=== PATIENT | female | born 1995 | race Caucasian/White ===

== ENCOUNTER 2016-08-09 11:28 | Emergency (ER) | payer OTHER ==
[2016-08-09 11:33] VITALS: TEMP 97.5; BMI 26.2
--- NOTE | 2016-08-09 12:50 | PDOC ---
History of Present Illness - General History Source: Patient - History of Present Illness Timing/Duration: reports: getting worse <Jay Qureshi - Last Filed: 08/09/16 16:03> <Sheron Hong - Last Filed: 08/09/16 19:05> - General Chief Complaint: Vaginal Sxs Stated Complaint: 10 WKS , BLEEDING Time Seen by Provider: 08/09/16 12:24 Past History - Past Medical History Asthma: No Cancer: No Cardiac Disorders: No Diabetes: No HTN: No Seizures: No Thyroid Disease: No - Psycho/Social/Smoking Cessation Hx Anxiety: No Suicidal Ideation: No Smoking History: Never smoked Have you smoked in the past 12 months: No Information on smoking cessation initiated: No Hx Alcohol Use: No Drug/Substance Use Hx: No Hx Substance Use Treatment: No <Jay Qureshi - Last Filed: 08/09/16 16:03> <Sheron Hong - Last Filed: 08/09/16 19:05> - Past Medical History Allergies/Adverse Reactions: Allergies Allergy/AdvReac Type Severity Reaction Status Date / Time No Known Allergies Allergy Verified 08/09/16 11:30 Home Medications: Ambulatory Orders Pnv95/Ferrous Fumarate/FA [ Caplet] 1 each PO DAILY 08/09/16 Review of Systems - Review of Systems Constitutional: No: Chills, Fever ABD/GI: No: Nausea, Vomiting, Abdominal cramping : No: Dysuria <HungarianJay greenfield - Last Filed: 08/09/16 16:03> *Physical Exam - Vital Signs Last Vital Signs Temp Pulse Resp BP Pulse Ox 97.5 F L 87 20 138/87 99 08/09/16 11:30 08/09/16 11:30 08/09/16 11:30 08/09/16 11:30 08/09/16 11:30 - Physical Exam General Appearance: Yes: Appropriately Dressed. No: Apparent Distress HEENT: positive: Normal Voice Neck: positive: Supple Respiratory/Chest: negative: Respiratory Distress Female Pelvic Exam: positive: vaginal bleeding, other (os fingertip). negative : CMT, adnexal tenderness Gastrointestinal/Abdominal: positive: Soft. negative: Tender Integumentary: positive: Dry, Warm Neurologic: positive: Fully Oriented, Alert, Normal Mood/Affect <Jay Qureshi - Last Filed: 08/09/16 16:03> - Vital Signs Last Vital Signs Temp Pulse Resp BP Pulse Ox 97.5 F L 78 16 122/75 98 08/09/16 11:30 08/09/16 16:00 08/09/16 16:00 08/09/16 16:00 08/09/16 16:00 <Sheron Hong - Last Filed: 08/09/16 19:05> ED Treatment Course - LABORATORY CBC & Chemistry Diagram: 08/09/16 13:05 - RADIOLOGY Radiology Studies Ordered: Category Date Time Status <14WKS US [US] Stat Ultrasound 08/09/16 12:32 Ordered <Jay Qureshi - Last Filed: 08/09/16 16:03> - LABORATORY CBC & Chemistry Diagram: 08/09/16 13:05 - ADDITIONAL ORDERS Additional order review: Laboratory Results 08/09/16 08/09/16 08/09/16 13:10 13:05 12:32 Beta HCG, Quant 83362.9 Urine Color Yellow Urine Appearance Clear Urine pH 6.0 Ur Specific [place] 1.021 Urine Protein Negative Urine Glucose (UA) Negative Urine Ketones Negative Urine Blood 3+ H Urine Nitrite Negative Urine Bilirubin Negative Urine Urobilinogen Negative Ur Leukocyte Esterase Negative Urine RBC 2 Urine WBC 1 Ur Epithelial Cells Rare Urine Mucus Rare Blood Type O POSITIVE Antibody Screen Negative 08/09/16 13:05 RBC 4.30 D MCV 87.7 MCHC 34.0 RDW 12.4 D MPV 7.6 Neutrophils % 77.7 Lymphocytes % 15.5 D Monocytes % 5.6 D Eosinophils % 0.7 D Basophils % 0.5 D <Sheron Hong - Last Filed: 08/09/16 19:05> Medical Decision Making - Medical Decision Making 08/09/16 12:46 21-year-old female, , about 10 weeks by date, states she had an ultrasound last week that did not show an IUP or evidence of otherwise per patient, scheduled for next ultrasound on Friday, here with vaginal bleeding. Patient states she has been bleeding on and off since last week and states symptoms worsened last night with possible clots. No abdominal pain, dysuria, nausea, vomiting, fever or chills. see exam 1st trimester bleed No IUP on US last week in OB's office Stable in ED w/ mod bleeding in vault, os fingertip ? spon AB, r/o ectopic -T&S -beta -US 08/09/16 15:33 US read as suspected nonviable preg w/ ges sac at ~6 weeks, no yolk sac/ pole seen, no adnexal mass seen. Pt informed and given copy of US report to take to her OB next week. 08/09/16 15:49 <Jay Qureshi - Last Filed: 08/09/16 16:03> *DC/Admit/Observation/Transfer <Jay Qureshi - Last Filed: 08/09/16 16:03> - Attestations Physician Attestion: I reviewed the case with the mid-level practitioner and agree with the mid- level practitioner's assessment, diagnosis and disposition. <Sheron Hong - Last Filed: 08/09/16 19:05> Diagnosis at time of Disposition: Spontaneous - Discharge Dispostion Disposition: HOME Condition at time of disposition: Stable - Patient Instructions Printed Discharge Instructions: DI for Miscarriage Additional Instructions: Please follow up with your OB on Friday. Return for worsening of symptoms Your beta was [id number] today
[2016-08-09 13:36] LABS: BASOPHIL 0.5 % (0-2.0); EOSINOPHIL 0.7 % (0-4.5); MCH 29.8 pg (25.7-33.7); MEAN CELL VOLUME 87.7 fl (80-96); MEAN PLT VOLUME 7.6 fl (7.5-11.1); NEUTROPHILS 77.7 % (42.8-82.8); PLATELET COUNT 248 K/MM3 (134-434); RDW 12.4 % (11.6-15.6); WHITE BLOOD COUNT 10.7 K/mm3 (4.0-10.0)
[2016-08-09 14:04] LABS: URINE APPEARANCE CLEAR; URINE BILIRUBIN NEGATIVE (NEGATIVE); URINE COLOR YELLOW; URINE GLUCOSE (UA) NEGATIVE (NEGATIVE); URINE KETONE NEGATIVE (NEGATIVE); URINE LEUK ESTERASE NEGATIVE (NEGATIVE); URINE NITRITE NEGATIVE (NEGATIVE); URINE PROTEIN NEGATIVE (NEGATIVE); URINE UROBILINOGEN NEGATIVE E.U./dl (0.2-1.0)
[2016-08-09 14:12] LABS: URINE BLOOD 3+ (NEGATIVE)
[2016-08-09 14:17] LABS: URINE MUCUS RARE; URINE RBC 2 /hpf (0-3); URINE WBC 1 /hpf (3-5)
[2016-08-09 16:21] VITALS: BP 122/75; PULSE 78
== END 2016-08-09 16:00 | disposition home or self-care (01) ==
LOC: JER 11:28
DX: O26.891 Other specified pregnancy related conditions, first trimester (principal); Z3A.10 10 weeks gestation of pregnancy; O03.9 Complete or unspecified spontaneous abortion without complication
CPT/HCPCS: 36415; 76801-TC; 81003; 81015; 84702; 85025; 86850; 86900; 86901; 99283-25

== ENCOUNTER 2016-08-11 16:38 | Emergency (ER) | payer OTHER ==
[2016-08-11 16:47] VITALS: BP 120/73; PULSE 99; TEMP 98.5; BMI 26.2
--- NOTE | 2016-08-11 18:43 | PDOC ---
History of Present Illness - General History Source: Patient, Old Records Exam Limitations: No Limitations - History of Present Illness Initial Comments: 08/11/16 19:15 The patient is a 21 year old female (; currently ), with no significant past medical history, who presents to the emergency department with abdominal cramping and vaginal bleeding for the past couple of days. This patient was most recently seen in this ED two days ago for the same symptoms. She had bloodwork and an ultrasound done and was told to return in two days ( today) for repeat tests. Over the past two days, she has been experiencing persistent abdominal cramping and vaginal bleeding. The patient states that she has been going through 5-6 pads/day and has noticed blood clots present. The patient denies fever, chills, headache, nausea, vomiting, diarrhea or dysuria. LMP: 05/26/2016. Allergies: None reported. Past Surgical History: None reported. Social History: Non smoker. Denies alcohol or drug use. PCP: Dr. Olmedo <Kaylie Velasquez - Last Filed: 08/11/16 22:03> <Echo Crooks - Last Filed: 08/12/16 01:47> - General Chief Complaint: Vaginal Bleeding Stated Complaint: VAGINAL BLEEDING Time Seen by Provider: 08/11/16 17:52 Past History <Kaylie Velasquez - Last Filed: 08/11/16 22:03> - Past Medical History Asthma: No Cancer: No Cardiac Disorders: No Diabetes: No HTN: No Seizures: No Thyroid Disease: No - Reproductive History Is Patient Now?: Yes (#): 2 Para: 1 Cervical CA: No Dysfunctional Uterine Bleeding: No Ectopic : No Endometrial CA: No Polycystic Ovaries: No Therapeutic (s) & number: No - Psycho/Social/Smoking Cessation Hx Anxiety: No Suicidal Ideation: No Smoking History: Never smoked Have you smoked in the past 12 months: No Information on smoking cessation initiated: No Hx Alcohol Use: No Drug/Substance Use Hx: No Hx Substance Use Treatment: No <Echo Crooks - Last Filed: 08/12/16 01:47> - Past Medical History Allergies/Adverse Reactions: Allergies Allergy/AdvReac Type Severity Reaction Status Date / Time No Known Allergies Allergy Verified 08/11/16 16:43 Home Medications: Ambulatory Orders Pnv95/Ferrous Fumarate/FA [ Caplet] 1 each PO DAILY 08/09/16 Review of Systems - Review of Systems Able to Perform ROS?: Yes Comments:: 08/11/16 19:16 CONSTITUTIONAL: Absent: fever, no chills, no fatigue EYES: Absent: visual changes ENT: Absent: ear pain, no sore throat CARDIOVASCULAR: Absent: chest pain, no palpitations RESPIRATORY: Absent: cough, no SOB GI: Present: +Abdominal cramping Absent: no nausea, no vomiting, no constipation, no diarrhea GENITOURINARY: Present: +Vaginal bleeding Absent: dysuria, no frequency, no hematuria MUSCULOSKELETAL: Absent: back pain, no arthralgia, no myalgia SKIN: Absent: rash NEURO: Absent: headache <Kaylie Velasquez - Last Filed: 08/11/16 22:03> *Physical Exam - Vital Signs Last Vital Signs Temp Pulse Resp BP Pulse Ox 98.5 F 99 H 17 120/73 99 08/11/16 16:44 08/11/16 16:44 08/11/16 16:44 08/11/16 16:44 08/11/16 16:44 - Physical Exam Comments: 08/11/16 19:19 GENERAL: Well-appearing, well-nourished. No apparent distress. HEENT: Normocephalic, atraumatic. PERRL, EOM intact. CARDIOVASCULAR: Regular rate and rhythm. Normal S1, S2. PULMONARY: Lungs clear to auscultation bilaterally. No wheezing, rales or rhonchi. ABDOMEN: Soft, non-distended, non-tender. No rebound, no guarding. EXTREMITIES: Normal ROM in all four extremities. No gross deformities. SKIN: Warm, dry. No rash. NEUROLOGICAL: No focal neurological deficits. Moving all extremities purposefully. <Kaylie Vealsquez - Last Filed: 08/11/16 22:03> - Vital Signs Last Vital Signs Temp Pulse Resp BP Pulse Ox 98.5 F 99 H 17 120/73 99 08/11/16 16:44 08/11/16 16:44 08/11/16 16:44 08/11/16 16:44 08/11/16 16:44 <Echo Crooks - Last Filed: 08/12/16 01:47> Medical Decision Making - Medical Decision Making 08/11/16 22:04 EXAM: TRANSVAGINAL US PREG Reviewed By: Dr. Domingo Diana IMPRESSION: No intrauterine is identified. This is most likely due to a spontaneous and early ectopic cannot be excluded on this exam. If clinically indicated recommend correlation with serial beta hCG levels. No evidence of right ovarian torsion. Left ovary is not identified. <Kaylie Velasquez - Last Filed: 08/11/16 22:03> - Medical Decision Making 08/12/16 01:41 21 yo female who was in the ER on Friday for threatened AB returns because she was told to come back if she had continued bleeding. Earlier tonight she passed what looked like tissue. she does not have any significant pain. -no dizziness,no lightheadedness -bhcg reduced from 10,000 to 5000 -on Friday08/09/16 she had a intrauterine gestational sac on her ultrasoiund but tonight the transvaginal ultrasound revealed there was NO IUP seen -given her clinical history and decreased bhcg there imp is a spon AB -pt told to see her intelligence officer within 7 days for repeat bhcg to make sure it becomes negative <Echo Crooks - Last Filed: 08/12/16 01:47> *DC/Admit/Observation/Transfer - Attestations Scribe Attestion: 08/11/16 19:16 Documentation prepared by Kaylie Velasquez, acting as director biomedical engineering for Echo Crooks MD. <Kaylie Velasquez - Last Filed: 08/11/16 22:03> <Echo Crooks - Last Filed: 08/12/16 01:47> Diagnosis at time of Disposition: Spontaneous - Discharge Dispostion Disposition: HOME Condition at time of disposition: Stable - Referrals Referrals: Lori Olmedo [Primary Care Provider] - - Patient Instructions Printed Discharge Instructions: DI for Threatened , DI for Miscarriage Additional Instructions: -please see your intelligence officer to have a final bhcg -return for any heavy vaginal bleeding
== END 2016-08-11 22:24 | disposition home or self-care (01) ==
LOC: JER 16:38
DX: O03.4 Incomplete spontaneous abortion without complication (principal); Z3A.10 10 weeks gestation of pregnancy
CPT/HCPCS: 36415; 76817-TC; 84702; 99282-25

== ENCOUNTER 2019-04-05 00:05 | Inpatient (IN) | payer OTHER ==
[2019-04-05] MEDS ORDERED: oxyCODONE HCL 5 MG TABLET PO PRN (00:48)
[2019-04-05] MEDS ORDERED: METHYLERGONOVINE MALEATE 0.2 MG/1 ML AMP IM PRN (00:48)
[2019-04-05] MEDS ORDERED: BENZOCAINE 20% 57 GM BOTTLE TP PRN (00:48)
[2019-04-05] MEDS ORDERED: ACETAMINOPHEN 325 MG TABLET (FP) PO PRN (00:48)
[2019-04-05] MEDS ORDERED: BENZOCAINE 28 GM HEMORRHOIDAL OINTMENT TP PRN (00:48)
[2019-04-05] MEDS ORDERED: BISACODYL 10 MG SUPP.RECT RC PRN (00:48)
[2019-04-05] MEDS ORDERED: WITCH HAZEL 50% (TUCKS) 40 PAD/JAR PAD TP PRN (00:48)
[2019-04-05] MEDS ORDERED: IBUPROFEN 600 MG TABLET (FP) PO PRN (00:48)
--- NOTE | 2019-04-05 00:57 | HP ---
Past Medical History - Primary Care Physician PCP:: Kathya Butt - Admission Chief Complaint: 23 yrs , 39.2 weeks BIBA after home delivery by EMT at 11.28 pm on 04/04/19 baby girl delievered spontaneously vaginally . placenta still in utero . History of Present Illness: pt states she had onset LP at 8.00 PM on 04/04/19 , she thought she had carmel[facility] uc , & all of sudden UC became intense & painful, they called ambulence when EMT arrived, baby was ready to come out . pnc at [facility] by [facility] 08/27/18 gc/ct neg, O Pos, , rubella immune, rpr nr, hiv neg , hbsag neg , varicella immune, , lead neg sickle neg , cf neg, hep c nr 12/29/18 : 1 hr gtt 67 , rpr nr, 03/10/19 gbs, gc/ct neg, hiv neg sono done by [facility] . 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 No: Gastritis ...: 4 ...Para: 2 ...Term: 2 (G1 10/22/12 6' sjrh, G2 06/18/17 6' sjrh ) ...Spon : 1 (08/2016) ...LMP: 07/03/18 ... Weeks Gestation by Dates: 39.3 ...EDC by Dates: 04/09/19 ...EDC by Sono: 04/09/19 (39.3) Heme/Onc: Yes: Anemia. No: Sickle Cell Disease Infectious Disease: No: AIDS, C-Diff, Herpes Zoster, HIV, MRSA, STD's, Tuberculosis, VREF, Other Psych: No: Addictions, Anxiety, Bipolar, Depression, Panic, Psychosis, Schizophrenia, Other - Past Surgical History Past Surgical History: Yes: None Hx Myomectomy: No Hx Transabdominal Cerclage: No - Smoking History Smoking history: Never smoked Have you smoked in the past 12 months: No - Alcohol/Substance Use Hx Alcohol Use: No History of Substance Use: reports: None Home Medications - Allergies Allergies/Adverse Reactions: Allergies Allergy/AdvReac Type Severity Reaction Status Date / Time No Known Allergies Allergy Verified 08/11/16 16:43 - Home Medications Home Medications: Ambulatory Orders Pnv95/Iron Fum/Folic Acid [ Caplet] 1 each PO DAILY 08/09/16 Ferrous Sulfate [Feosol] 325 mg PO BIDWM #60 tab 06/19/17 Vitamins (Sjr) - 1 tab PO DAILY #30 tablet 06/19/17 Physical Exam - Maternity Constitutional: Yes: Well Nourished Eyes: Yes: WNL HENT: Yes: WNL Neck: Yes: WNL Cardiovascular: Yes: WNL Lungs: Clear to auscultation Breast(s): Yes: WNL - Abdominal Exam/OB Fundal Height: 22 (,s/p vag delvery, placenta in utero, cord hanging out from vagina, ext genitalia normal, no laceration, vagina no laceration, cx intact , bleeding small amount in vaginal) - Vaginal Exam/OB Vaginal Bleediing: Yes (no vaginal laceration no perineal laceration) Dilatation (cm): 10 - Physical Exam Musculoskeletal: Yes: WNL Extremities: Yes: WNL. No: Calf Tenderness Edema: No Integumentary: Yes: WNL Deep Tendon Reflex Grade: Normal +2 ...Motor Strength: WNL Psychiatric: Yes: WNL, Alert, Oriented - Labs Lab Results: Laboratory Tests 04/05/19 04/05/19 04/05/19 01:30 01:30 01:30 WBC 16.5 H RBC 3.62 Hgb 9.7 L Plt Count 222 D PT with INR 11.40 INR 0.97 PTT (Actin FS) 30.3 Sodium 136 Potassium 3.7 Chloride 106 Carbon Dioxide 19 L BUN 11.8 Creatinine 0.5 L Random Glucose 140 H Calcium 8.1 L RPR Titer 04/05/19 01:30 WBC RBC Hgb Plt Count PT with INR INR PTT (Actin FS) Sodium Potassium Chloride Carbon Dioxide BUN Creatinine Random Glucose Calcium RPR Titer Nonreactive Problem List - Problems (1) with 39 completed weeks gestation Code(s): Z3A.39 - 39 WEEKS GESTATION OF (2) Retained placenta after delivery without hemorrhage but with other complication Code(s): O73.0 - RETAINED PLACENTA WITHOUT HEMORRHAGE (3) Anemia Code(s): D64.9 - ANEMIA, UNSPECIFIED Assessment/Plan 23 yrs , 39.2 weeks gbs neg delivered by EMT at home in [place] presentation, baby girl , baby cried immediately , at 11.28 PM 04/04/19 , pt brought by emt with placenta in utero ., bleeding small amount Plan delivery placenta & perineal vaginal exam for laceration .
[2019-04-05] MEDS ORDERED: OXYTOCIN 20 UNITS in 0.9% NS 20 UNIT/1,000 ML INFUS.BAG IV SCH (01:00)
--- NOTE | 2019-04-05 01:38 | PN ---
Delivery - Delivery Vaginal Delivery: Spontaneous (home delivery by EMT , cephalic. Total ebl estimate unable to estimate. cord blood collected , 3 vessel cord . . placenta removed completely with membranes along with blood clots ebl 100 ml witnessed . perineum & vagina , cx & ut intact) Episiotomy/Laceration: None EBL (cc): 100 (blood clots along with placenta witnessed ) Delivery, Single - Stages of Labor Date 1st Stage Initiatied: 04/04/19 Time 1st Stage Initiated: 20:00 Date of Delivery: 04/04/19 Time of Delivery: 23:28 Date Placenta Delivered: 04/05/19 Time Placenta Delivered: 00:30 Placenta: Yes: Spontaneous, Uterine Exploration - Condition of Gender: Female Weight: 6 lb 14 oz (well baby , in the hosp 10 ) Total Hours ROM (Hrs/Mins): 1 hr approx Remarks - Remarks Remarks: 23 yrs , 39.2 weeks gbd neg, pnc at [facility] delivered at home , placenta delivery in the hosp no complications v/s stable
[2019-04-05 02:01] VITALS: BMI 29.2
[2019-04-05 02:36] LABS: BASO % 0.2 % (0-2.0); EOS % 0.2 % (0-4.5); HEMATOCRIT 29.8 % (32.4-45.2); HEMOGLOBIN 9.7 GM/dL (10.7-15.3); LYMPH % 5.2 % (8-40); MCH 26.9 pg (25.7-33.7); MCHC 32.7 g/dl (32.0-36.0); MEAN CELL VOLUME 82.3 fl (80-96); MEAN PLT VOLUME 8.1 fl (7.5-11.1); MONO % 3.7 % (3.8-10.2); NEUT % 90.7 % (42.8-82.8); PLATELET COUNT 222 K/MM3 (134-434); RBC 3.62 M/mm3 (3.60-5.2); RDW 15.4 % (11.6-15.6); WHITE BLOOD COUNT 16.5 K/mm3 (4.0-10.0)
[2019-04-05 02:50] LABS: INR 0.97 (0.83-1.09); PROTHROMBIN TIME (PATIENT) 11.4 SEC (9.7-13.0)
[2019-04-05 02:52] LABS: ACTIVATED PTT 30.3 SECONDS (25.2-36.5)
[2019-04-05 02:59] LABS: BLOOD UREA NITROGEN 11.8 mg/dL (7-18); CALCIUM 8.1 mg/dL (8.5-10.1); CREATININE 0.5 mg/dL (0.55-1.3); POTASSIUM 3.7 mmol/L (3.5-5.1)
[2019-04-05] MEDS: FERROUS SO4 325 MG TABLET (FP) PO SCH ×2 (08:51→17:50)
[2019-04-05] MEDS: PRENATAL VITAMINS W/ FOLIC ACID TABLET (FP) PO SCH (09:50)
--- NOTE | 2019-04-05 10:27 | PN ---
Post Progress Note - Subjective Subjective: c/o cramps voided urine after delivery Post Day: 0 Type of Delivery: Vital Signs: Vital Signs Temperature 97.7 F 04/05/19 06:00 Pulse Rate 70 04/05/19 06:00 Respiratory Rate 18 04/05/19 06:00 Blood Pressure 112/60 04/05/19 06:00 O2 Sat by Pulse Oximetry (%) 99 04/05/19 01:30 Breast Exam: Yes: Soft, Other (BF ). No: Engorged Uterus: Yes: Fundus Firm, Fundus below umbilicus, Non-tender Lochia: Yes: Rubra Lochia, amount: Moderate Extremities: Yes: Calves non-tender Perineum: Yes: Intact Activity: Ambulating - Labs Labs: CBC WBC 16.5 K/mm3 (4.0-10.0) H 04/05/19 01:30 RBC 3.62 M/mm3 (3.60-5.2) 04/05/19 01:30 Hgb 9.7 GM/dL (10.7-15.3) L 04/05/19 01:30 Hct 29.8 % (32.4-45.2) L 04/05/19 01:30 MCV 82.3 fl (80-96) 04/05/19 01:30 MCH 26.9 pg (25.7-33.7) 04/05/19 01:30 MCHC 32.7 g/dl (32.0-36.0) 04/05/19 01:30 RDW 15.4 % (11.6-15.6) 04/05/19 01:30 Plt Count 222 K/MM3 (134-434) D 04/05/19 01:30 MPV 8.1 fl (7.5-11.1) 04/05/19 01:30 Absolute Neuts (auto) 14.9 K/mm3 (1.5-8.0) H 04/05/19 01:30 Neutrophils % 90.7 % (42.8-82.8) H 04/05/19 01:30 Lymphocytes % 5.2 % (8-40) L D 04/05/19 01:30 Monocytes % 3.7 % (3.8-10.2) L 04/05/19 01:30 Eosinophils % 0.2 % (0-4.5) 04/05/19 01:30 Basophils % 0.2 % (0-2.0) 04/05/19 01:30 Nucleated RBC % 0 % (0-0) 04/05/19 01:30 Problem List - Problems (1) with 39 completed weeks gestation Code(s): Z3A.39 - 39 WEEKS GESTATION OF (2) Retained placenta after delivery without hemorrhage but with other complication Code(s): O73.0 - RETAINED PLACENTA WITHOUT HEMORRHAGE (3) Anemia Code(s): D64.9 - ANEMIA, UNSPECIFIED Assessment/Plan post home delivery , stable plan ct pp care pt wishes to go home tomorrow.
[2019-04-06 06:32] LABS: BASO % 0.4 % (0-2.0); EOS % 0.9 % (0-4.5); HEMATOCRIT 21.9 % (32.4-45.2); HEMOGLOBIN 7.4 GM/dL (10.7-15.3); LYMPH % 26.7 % (8-40); MCH 27.7 pg (25.7-33.7); MCHC 33.6 g/dl (32.0-36.0); MEAN CELL VOLUME 82.3 fl (80-96); MEAN PLT VOLUME 7.5 fl (7.5-11.1); MONO % 6.2 % (3.8-10.2); NEUT % 65.8 % (42.8-82.8); PLATELET COUNT 172 K/MM3 (134-434); RBC 2.67 M/mm3 (3.60-5.2); RDW 15.2 % (11.6-15.6); WHITE BLOOD COUNT 9.5 K/mm3 (4.0-10.0)
--- NOTE | 2019-04-06 07:37 | DS ---
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 BF) Musculoskeletal: Yes: WNL Extremities: Yes: WNL. No: Calf Tenderness Edema: No Integumentary: Yes: WNL Neurological: Yes: WNL ...Motor Strength: WNL Psychiatric: Yes: WNL Labs: CBC, BMP 04/06/19 05:49 04/05/19 01:30 Delivery - Delivery Vaginal Delivery: Spontaneous (home delivery by EMT , cephalic. Total ebl estimate unable to estimate. cord blood collected , 3 vessel cord . . placenta removed completely with membranes along with blood clots ebl 100 ml witnessed . perineum & vagina , cx & ut intact) Type of Anesthesia: None Episiotomy/Laceration: None EBL (cc): 100 (blood clots along with placenta witnessed ) Delivery, Single - Stages of Labor Date 1st Stage Initiatied: 04/04/19 Time 1st Stage Initiated: 20:00 Date of Delivery: 04/04/19 Time of Delivery: 23:28 Time Placenta Delivered: 00:30 Placenta: Yes: Spontaneous, Uterine Exploration - Condition of Infant Pleat Taper/Learning Specialist Present: No Infant Gender: Female Weight: 6 lb 14 oz (well baby , in the hosp 10 ) Total Hours ROM (Hrs/Mins): 1 hr approx - Home Delivery on Admit Total Score: 10 - [place] Feeding Plan Initial Plan: Elected not to breastfeed exclusively throughout hospitalization Remarks - Remarks Remarks: s/p home delivery placenta delivery in the hospital anemia . pt is hemodynamically stable , asymptomatic anemia counselled , will continue po iron & pnv . high iron & protein diet discharge today, will follow at [facility] for pp visit repeat cbc in 4 weeks Discharge Summary Reason For Visit: LABOR ADMIT Current Active Problems Anemia (Acute) with 39 completed weeks gestation (Acute) Retained placenta after delivery without hemorrhage but with other complication (Acute) - Instructions Diet, Activity, Other Instructions: Discharge Instructions * Out of Bed * * Regular Diet, high iron & high protein diet * Samantha Care * Avoid sex for 6 weeks * Rtc 4-6 weeks for follow up If you experience excessive bleeding or fever over 101 degrees, call doctor, the clinic or go to the Emergency Room. Referrals: Kathya Butt MD [Staff Physician] - Disposition: HOME - Home Medications Comprehensive Discharge Medication List: Ambulatory Orders Pnv95/Iron Fum/Folic Acid [ Caplet] 1 each PO DAILY 08/09/16 Ferrous Sulfate [Feosol] 325 mg PO BIDWM #60 tab 06/19/17 Vitamins (Sjr) - 1 tab PO DAILY #30 tablet 06/19/17 Acetaminophen [Tylenol .Regular Strength -] 650 mg PO Q3H PRN tablet 04/05/19 Ferrous Sulfate [Feosol] 325 mg PO BIDWM #60 ud 04/05/19 Ibuprofen [Motrin -] 200 mg PO Q4H PRN tablet 04/05/19 Vitamins (Sjr) - 1 tab PO DAILY #30 tablet 04/05/19
[2019-04-06] MEDS: FERROUS SO4 325 MG TABLET (FP) PO SCH (08:42)
[2019-04-06] MEDS: PRENATAL VITAMINS W/ FOLIC ACID TABLET (FP) PO SCH (09:33)
[2019-04-06 10:33] VITALS: BP 114/60; PULSE 91; TEMP 97.6
[2019-04-06 11:44] LABS: ANISOCYTOSIS 0; MACROCYTOSIS 0; PLATELET ESTIMATE NORMAL
[2019-04-06] MEDS ORDERED: SENNOSIDES/DOCUSATE COMBO (SENNA PLUS) TABLET (UD) PO PRN (22:00)
== END 2019-04-06 13:57 | disposition home or self-care (01) | DRG 560 ==
LOC: JLDR 00:05 → J3W 02:45
PROVIDERS: ADMIT Obstetrics & Gynecology; ATTEND Obstetrics & Gynecology
PROC: 10E0XZZ Delivery of Products of Conception, External Approach (ICD-10-PCS; principal; 2019-04-04)
DX: Z39.0 Encounter for care and examination of mother immediately after delivery (principal); O73.0 Retained placenta without hemorrhage; O99.013 Anemia complicating pregnancy, third trimester; Z3A.39 39 weeks gestation of pregnancy; Z37.0 Single live birth
CPT/HCPCS: 36415; 59409; 80048; 85025; 85610; 85730; 86593; 86850; 86900; 86901